=== PATIENT | female | born 1985 | race Hispanic/Latino ===

== ENCOUNTER 2021-11-08 08:05 | Emergency (ER) | payer OTHER ==
[2021-11-08 09:27] LABS: Urine Blood Trace-intact (Negative); Urine Glucose Negative (Negative); Urine Protein Negative (Negative); Urine Specific Gravity 1.025 (1.005-1.030); Urine pH 5.5 (5.0-7.0)
[2021-11-08 09:42] LABS: SARS-COV-2 RT PCR NEGATIVE (NEGATIVE)
--- NOTE | 2021-11-08 10:08 | ER ---
Nurse's Notes [facility] Name: Maria Esther Francisco Age: 36 yrs Sex: Female : 1985 Arrival Date: 11/08/2021 Time: 08:10 Bed 18 Private MD: Diagnosis: Acute pharyngitis, unspecified Presentation: 11/08 08:18 Chief complaint: Patient states: she has had a sore throat, low back pain and cough for ap3 5 days. Coronavirus screen: Client presents with at least one sign or symptom that may indicate coronavirus-19. Standard/surgical mask placed on the client. Provider contacted for isolation considerations. Ebola Screen: No symptoms or risks identified at this time. Initial Sepsis Screen: Does the patient meet any 2 criteria? HR > 90 bpm. No. Patient's initial sepsis screen is negative. Does the patient have a suspected source of infection? No. Patient's initial sepsis screen is negative. Risk Assessment: Do you want to hurt yourself or someone else? Patient reports no desire to harm self or others. Onset of symptoms was November 03, 2021. 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 - Social history:: Smoking status: Patient denies any tobacco usage or history of. Screenin:21 Abuse screen: Denies threats or abuse. Nutritional screening: No deficits noted. ap3 Tuberculosis screening: No symptoms or risk factors identified. Fall Risk None identified. Assessment: 08:20 General: Appears in no apparent distress. comfortable, Behavior is calm, cooperative, ap3 appropriate for age, Reports feeling ill for > 3 days. Pain: Complains of pain in low back area. Neuro: Level of Consciousness is awake, alert, obeys commands, Oriented to person, place, time, situation, Appropriate for age Gait is steady, Speech is normal. Cardiovascular: Capillary refill < 3 seconds Patient's skin is warm and dry. Respiratory: Airway is patent Respiratory effort is even, unlabored, Respiratory pattern is regular, symmetrical, Breath sounds are clear bilaterally. EENT: Throat is pink Reports pain when swallowing. 09:06 Reassessment: Patient and/or family updated on plan of care and expected duration. Pain ap3 level reassessed. Patient is alert, oriented x 3, equal unlabored respirations, skin warm/dry/pink. nurse provided patient with specimen cup, wipes and education on proper urine collection. Patient verbalized understanding. 10:02 Reassessment: Patient and/or family updated on plan of care and expected duration. Pain ap3 level reassessed. Patient is alert, oriented x 3, equal unlabored respirations, skin warm/dry/pink. Vital Signs: 08:18 BP 135 / 91; Pulse 103; Resp 18; Temp 99.1(O); Pulse Ox 99% on R/A; Weight 58.97 kg; ap3 Height 5 ft. 4 in. (162.56 cm); Pain 3/10; 09:07 BP 120 / 75; Pulse 82; Pulse Ox 99% on R/A; ap3 08:18 Body Mass Index 22.31 (58.97 kg, 162.56 cm) ap3 ED Course: 08:10 Patient arrived in ED. am2 08:10 [facility] Basur[facility]C [facility] kb 08:10 Stefan Rivera MD is Attending Physician. kb 08:18 Rosy Davis, LYDIA is Primary Nurse. ap3 08:20 Triage completed. ap3 08:22 Arm band placed on right wrist. ap3 08:23 Patient has correct armband on for positive identification. Bed in low position. Call ap3 light in reach. Side rails up X 1. Pulse ox on. NIBP on. Door closed. Noise minimized. 09:31 Cops to see patient. ap3 10:21 No provider procedures requiring assistance completed. Patient did not have IV access ap3 during this emergency room visit. Administered Medications: No medications were administered Outcome: 10:07 Discharge ordered by . kb 10:22 Discharged to home ambulatory. ap3 10:22 Condition: good 10:22 Discharge instructions given to patient, Instructed on discharge instructions, follow up and referral plans. Demonstrated understanding of instructions, follow-up care. 10:22 Patient left the ED. ap3 Signatures: Keyana Basurto, JEET-C TRADING ANALYST-Ckb Rosy Bennett am2 Rosy Davis, RN RN ap3
--- NOTE | 2021-11-08 10:08 | EDPHYS ---
Physician Documentation [facility] Name: Maria Esther Francisco Age: 36 yrs Sex: Female : 1985 Arrival Date: 11/08/2021 Time: 08:10 Bed 18 Private MD: ED Physician Stefan Rivera HPI: 11/08 08:16 This 36 yrs old Female presents to ER via Unassigned with complaints of Cough, Sore kb Throat. 08:16 The patient presents with sore throat. The patient describes throat pain as constant. kb Onset: The symptoms/episode began/occurred 5 day(s) ago. Severity of symptoms: At their worst the symptoms were moderate, in the emergency department the symptoms are unchanged. Modifying factors: The symptoms are alleviated by nothing, the symptoms are aggravated by swallowing, Patient's oral intake status: good Denies contact with similarly ill indivduals. Associated signs and symptoms: Pertinent positives: cough, Sore throat Pertinent negatives fever. The patient has not experienced similar symptoms in the past. The patient has not recently seen a physician. Pt reports sore throat, cough and low back pain that started 5 days ago. Denies fever. . 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 - Social history:: Smoking status: Patient denies any tobacco usage or history of. ROS: 08:17 Constitutional: Negative for fever, chills, and weight loss. kb 08:17 ENT: Positive for sore throat. 08:17 Respiratory: Positive for cough, Negative for dyspnea on exertion, shortness of breath, sputum production, wheezing. 08:17 Back: Positive for pain at rest. 08:18 All other systems are negative. kb Exam: 08:17 Constitutional: This is a well developed, well nourished patient who is awake, alert, kb and in no acute distress. Head/Face: Normocephalic, atraumatic. Cardiovascular: Regular rate and rhythm with a normal S1 and S2. No gallops, murmurs, or rubs. No pulse deficits. Respiratory: Respirations even and unlabored. No increased work of breathing. Talking in full sentences Skin: Warm, dry with normal turgor. Normal color. MS/ Extremity: Pulses equal, no cyanosis. Neurovascular intact. Full, normal range of motion. Neuro: Awake and alert, GCS 15, oriented to person, place, time, and situation. Moves all extremities. Normal gait. Psych: Awake, alert, with orientation to person, place and time. Behavior, mood, and affect are within normal limits. 08:17 ENT: Nose: is normal, Mouth: is normal, Posterior pharynx: Airway: normal, no evidence of obstruction, Tonsils: bilaterally enlarged, with erythema, Uvula: normal, midline, erythema, that is moderate. Vital Signs: 08:18 BP 135 / 91; Pulse 103; Resp 18; Temp 99.1(O); Pulse Ox 99% on R/A; Weight 58.97 kg; ap3 Height 5 ft. 4 in. (162.56 cm); Pain 3/10; 09:07 BP 120 / 75; Pulse 82; Pulse Ox 99% on R/A; ap3 08:18 Body Mass Index 22.31 (58.97 kg, 162.56 cm) ap3 MDM: 08:15 Patient medically screened. kb 08:17 Data reviewed: vital signs, nurses notes. Data interpreted: Pulse oximetry: on room air kb is 100 %. Interpretation: normal. 10:07 Counseling: I had a detailed discussion with the patient and/or guardian regarding: the kb historical points, exam findings, and any diagnostic results supporting the discharge/admit diagnosis, lab results, the need for outpatient follow up, a family practitioner, to return to the emergency department if symptoms worsen or persist or if there are any questions or concerns that arise at home. 11/08 08:16 Order name: COVID-19/FLU A+B (Document "Date of Onset" if Symptomatic); Complete Time: kb 09:43 11/08 08:16 Order name: Strep; Complete Time: 09:43 kb 11/08 08:17 Order name: Urine Dipstick-Ancillary (obtain specimen); Complete Time: 09:31 kb 11/08 09:26 Order name: Urine Dipstick-Ancillary; Complete Time: 09:33 EDMS 11/08 09:42 Order name: Throat Culture EDMS Administered Medications: No medications were administered Disposition: 19:47 Co-signature as Attending Physician, Stefan Rivera MD I agree with the assessment and kdr plan of care. Disposition Summary: 11/08/21 10:07 Discharge Ordered Location: Home kb Condition: Stable kb Diagnosis - Acute pharyngitis, unspecified kb Followup: kb - With: Emergency Department - When: As needed - Reason: Worsening of condition Followup: kb - With: Private Physician - When: 2 - 3 days - Reason: Recheck today's complaints, Continuance of care, Re-evaluation by your physician Discharge Instructions: - Discharge Summary Sheet kb - Pharyngitis, [id number] kb Forms: - Medication Reconciliation Form kb - Thank You Letter kb - Antibiotic Education kb - Work release form kb - Prescription Opioid Use kb Signatures: Dispatcher [employer] EDMD Keyana Basurto, CARTRIDGE MAKER-C CARTRIDGE MAKER-Stefan Martinez MD MD kdr Prokisch, Amanda RN RN ap3
[2021-11-08 10:29] VITALS: TEMP 99.1; O2SAT 99
[2021-11-08 10:30] VITALS: BP 120/75
== END 2021-11-08 10:22 | disposition home or self-care (01) ==
LOC: ER 08:05
DX: J02.9 Acute pharyngitis, unspecified (principal); Z20.822 Contact with and (suspected) exposure to COVID-19
CPT/HCPCS: 87070; 87081; 81003; 0240U; 99283